=== PATIENT | female | born 1965 | race Two or more races ===

== ENCOUNTER 2018-06-06 15:30 | Outpatient (CLI) | payer OTHER | END 2018-06-06 15:37 | disposition home or self-care (01) | LOC: RAD 15:30 | DX: M25.561 Pain in right knee (principal); M25.562 Pain in left knee ==

== ENCOUNTER 2018-07-20 09:05 | Outpatient (CLI) | payer OTHER ==
[2018-07-29] MEDS ORDERED: VALSARTAN-HCTZ1 EAC1 PO (16:11)
[2018-07-29] MEDS ORDERED: ZANTAC300 MG PO (16:11)
[2018-07-29] MEDS ORDERED: VITAMIN D2000 UNIT PO (16:12)
[2018-07-29] MEDS ORDERED: COLAGENO PO (16:12)
== END 2018-07-20 09:52 | disposition home or self-care (01) ==
LOC: LAB 09:05
DX: D64.89 Other specified anemias (principal); D68.8 Other specified coagulation defects; N39.0 Urinary tract infection, site not specified; Z76.89 Persons encountering health services in other specified circumstances; E88.89 Other specified metabolic disorders; A49.02 Methicillin resistant Staphylococcus aureus infection, unspecified site

== ENCOUNTER 2018-07-23 14:03 | Outpatient (CLI) | payer OTHER ==
[2018-07-29] MEDS ORDERED: ZANTAC300 MG PO (16:11)
[2018-07-29] MEDS ORDERED: VALSARTAN-HCTZ1 EAC1 PO (16:11)
[2018-07-29] MEDS ORDERED: COLAGENO PO (16:12)
[2018-07-29] MEDS ORDERED: VITAMIN D2000 UNIT PO (16:12)
== END 2018-07-23 14:12 | disposition home or self-care (01) ==
LOC: EKG 14:03
DX: I49.8 Other specified cardiac arrhythmias (principal)

== ENCOUNTER → 2018-08-07 11:12 | Outpatient (CLI) | payer OTHER ==
[~2018-08-07 11:12] MED LIST: COLAGENO PO; VALSARTAN-HCTZ1 EAC1 PO; VITAMIN D2000 UNIT PO; ZANTAC300 MG PO
== END | disposition home or self-care (01) ==
LOC: LAB 11:12
DX: D64.89 Other specified anemias (principal); M06.4 Inflammatory polyarthropathy; M25.48 Effusion, other site